=== PATIENT | female | born 1985 | race American Indian/Alaskan Native ===

== ENCOUNTER 2021-03-15 23:56 | Emergency (ER) | payer SELFPAY ==
--- NOTE | 2021-03-16 00:49 | Emergency Department Report ---
ED Psych HPI - General Chief Complaint: Psych Stated Complaint: MH Time Seen by Provider: 03/16/21 00:39 Source: patient Mode of arrival: Ambulatory - History of Present Illness Initial Comments: Patient is a 36-year-old female who presents emergency room with complaints of suicidal ideations and depression. Patient states that her symptoms started 3 to 4 days ago. Patient states her symptoms are worsening. Patient states she then developed the plan tonight. Patient states her plan is to overdose on Klonopin which she has access to. Patient states she called a crisis line and the crisis line brought her to the hospital. Patient denies homicidal ideation. Patient denies hallucinations. Patient states she is been quite depressed. Patient dates she has a history of anxiety, depression, fibromyalgia and chronic pain. Patient states she is currently taking Klonopin and Cymbalta. Patient states she does believe Cymbalta is working. Patient denies recent travel. Patient denies recent international travel. Patient denies exposure to the novel coronavirus. Patient denies sick contacts. Patient denies fever and chills. Patient denies cough. Patient denies diarrhea. Patient denies coming in contact with anybody with symptoms of the novel coronavirus. Complaint: suicidal ideation, feels depressed -: Sudden Associated Psychiatric Symptoms: depression, suicidal ideation, racing thoughts History of same: Yes Quality: constant Improves With: none Worsens With: none Context: significant life stressor Associated Symptoms: denies: confusion, headache, shortness of breath, nausea, vomiting, syncope, insomnia Treatments Prior to Arrival: placed on mental he If Self Harm: admits thoughts of, has plan - Related Data Allergies Allergy/AdvReac Type Severity Reaction Status Date / Time No Known Allergies Allergy Unverified 03/16/21 00:21 ED Review of Systems ROS: Stated complaint: MH Other details as noted in HPI Constitutional: denies: chills, fever Eyes: denies: eye pain, eye discharge, vision change ENT: denies: ear pain, throat pain Respiratory: denies: cough, shortness of breath, wheezing Cardiovascular: denies: chest pain, palpitations Endocrine: no symptoms reported Gastrointestinal: denies: abdominal pain, nausea, diarrhea Genitourinary: denies: urgency, dysuria, discharge Musculoskeletal: denies: back pain, joint swelling, arthralgia Skin: denies: rash, lesions Neurological: denies: headache, weakness, paresthesias Psychiatric: as per HPI, anxiety, depression, suicidal thoughts Hematological/Lymphatic: denies: easy bleeding, easy bruising ED Past Medical Hx - Past Medical History Previous Medical History?: Yes Hx Asthma: Yes Additional medical history: anxiety, depression, fibromyalgia, chronic pain - Surgical History Past Surgical History?: Yes Additional Surgical History: hysterectomy, spinal fusion - Family History Family history: no significant - Social History Smoking Status: Never Smoker Substance Use Type: None ED Physical Exam - General Limitations: No Limitations General appearance: alert, in no apparent distress - Head Head exam: Present: atraumatic, normocephalic - Eye Eye exam: Present: normal appearance - ENT ENT exam: Present: mucous membranes moist - Neck Neck exam: Present: normal inspection - Respiratory Respiratory exam: Present: normal lung sounds bilaterally. Absent: respiratory distress - Cardiovascular Cardiovascular Exam: Present: regular rate, normal rhythm. Absent: systolic murmur, diastolic murmur, rubs, gallop - GI/Abdominal GI/Abdominal exam: Present: soft, normal bowel sounds - Extremities Exam Extremities exam: Present: normal inspection - Back Exam Back exam: Present: normal inspection - Neurological Exam Neurological exam: Present: alert, oriented X3 - Psychiatric Psychiatric exam: Present: depressed, flat affect, suicidal ideation - Skin Skin exam: Present: warm, dry, intact, normal color. Absent: rash ED Course Vital Signs 03/16/21 03/16/21 03/16/21 00:18 01:14 02:00 Temperature 98.7 F Pulse Rate 97 H 85 Respiratory 18 18 Rate Blood Pressure 155/96 Blood Pressure 139/89 [Right] O2 Sat by Pulse 97 96 97 Oximetry 03/16/21 03/16/21 03/16/21 09:28 19:27 20:50 Temperature 98.5 F 98.7 F Pulse Rate 93 H 76 Respiratory 18 18 Rate Blood Pressure Blood Pressure 144/88 140/78 [Right] O2 Sat by Pulse 99 98 99 Oximetry - Reevaluation(s) Reevaluation #1: Patient is medically cleared. Patient will remain in the ER as an ER hold until the patient is cleared by our psychiatry team. Patient's final disposition will come from our psych team. 03/16/21 02:58 ED Medical Decision Making - Lab Data Result diagrams: 03/16/21 00:50 03/16/21 00:50 - Medical Decision Making Patient is a 36-year-old female that presents emergency room with complaints of suicidal ideations. Patient has a plan to overdose on her Klonopin. Patient is currently taking Klonopin and Cymbalta for her psychiatric condition. Patient states her depression has been worsening. Patient states she went to get help prior to actually taking part in her plan. Patient had labs done which were essentially unremarkable. Patient is medically cleared. Patient remained in the ER as an ER hold until the patient is cleared by our psychiatry team. Patient's final disposition will come from our psychiatry team. - Differential Diagnosis Depression, suicidal ideation, Critical care attestation.: If time is entered above; I have spent that time in minutes in the direct care of this critically ill patient, excluding procedure time. ED Disposition Clinical Impression: Suicidal ideation Depression Qualifiers: Depression Type: unspecified Qualified Code(s): F32.A - Depression, unspecified Disposition: [address] [place] [address] HOSPITAL Is pt being admited?: No Does the pt Need Aspirin: No Condition: Stable Referrals: VERNELL VARNER MD [Primary Care Provider] - 2-3 Days Time of Disposition: 02:59
[2021-03-16 01:36] LABS: Blood Urea Nitrogen 10 mg/dL (7-17); Calcium 9.2 mg/dL (8.4-10.2); Hemolysis Index 2
[2021-03-16 01:55] LABS: BUN/Creatinine Ratio 17
[2021-03-16 01:56] LABS: Basophils % (Auto) 0.6 % (0.0-1.8); Eosinophils # (Auto) 0.2 K/mm3 (0.0-0.4); Eosinophils % (Auto) 2.1 % (0.0-4.3); Hematocrit 38.7 % (30.3-42.9); Hemoglobin 12.6 gm/dl (10.1-14.3); Lymphocytes # (Auto) 1.6 K/mm3 (1.2-5.4); Lymphocytes % (Auto) 20.7 % (13.4-35.0); Mean Corpuscular HGB Conc 33 % (30-34); Mean Corpuscular Volume 88 fl (79-97); Monocytes # (Auto) 0.7 K/mm3 (0.0-0.8); Monocytes % (Auto) 9.8 % (0.0-7.3); Platelet Count 503 K/mm3 (140-440); Red Cell Distribution Width 13.5 % (13.2-15.2)
[2021-03-16 04:31] LABS: Bilirubin,Urine NEG (Negative); Blood,Urine NEG (Negative); Color,Urine Yellow (Yellow); Mucus,Urine FEW /HPF; Protein,Urine <15 mg/dL mg/dL (Negative); Urobilinogen,Urine < 2.0 mg/dL (<2.0)
[2021-03-16 04:44] LABS: Amphetamine Screen,Urine PRESUMPTIVE NEGATIVE; Benzodiazepines Screen,Urine PRESUMPTIVE NEGATIVE; Cannabinoid Screen,Urine PRESUMPTIVE NEGATIVE; Cocaine Screen,Urine PRESUMPTIVE NEGATIVE; Methadone Screen,Urine PRESUMPTIVE NEGATIVE; Opiate Screen,Urine PRESUMPTIVE NEGATIVE
--- NOTE | 2021-03-16 09:02 | Consultation ---
History of Present Illness - Reason for Consult Consult date: 03/16/21 Reason for consult: SI, depression - History of Present Psychiatric Illness Per ER Chart: Patient is a 36-year-old female who presents emergency room with complaints of suicidal ideations and depression. Patient states that her symptoms started 3 to 4 days ago. Patient states her symptoms are worsening. Patient states she then developed the plan tonight. Patient states her plan is to overdose on Klonopin which she has access to. Patient states she called a crisis line and the crisis line brought her to the hospital. Patient denies homicidal ideation. Patient denies hallucinations. Patient states she is been quite depressed. Patient dates she has a history of anxiety, depression, fibromyalgia and chronic pain. Patient states she is currently taking Klonopin and Cymbalta. Patient states she does believe Cymbalta is working. Janet Travis is a 36y/o female who presented to the ER for depression, SI with plan to OD. During my evaluation, the patient was calm, cooperative and polite. She says "I wasn't feeling very safe so I came to the ER." The patient says she has suicidal thoughts that come and go, have been more severe. She has a plan to OD on her anxiety meds. The patient then says "but right now I acutally feel better than what I did last night." She says "I think maybe if I would have had an increase on my meds it would have helped but right now I don't have insurance." The patient says she has past attempts of SI twice in the past awhile back. She denies hallucinations of any kind. She also denies alcohol, nicotine or illicit drug use. PAST PSYCHIATRIC HISTORY: Diagnoses: depression, anxiety Suicide attempts or Self-harm behavior: Twice Prior psychiatric hospitalizations: Denies Substance Abuse history: Denies Previous psychiatric medications tried: Cymbalta, klonopin Outpatient treatment: Yes PAST MEDICAL HISTORY: None reported or document Family Psychiatric History: None reported or documented SOCIAL HISTORY Marital Status: Single Living Arrangements: Roommate Employment Status: Employed Access to guns/weapons: Denies Education: History of Abuse: Denies Legal History: Denies REVIEW OF SYSTEMS Constitutional: Negative for weight loss ENT: Negative for stridor Respiratory: Negative for cough or hemoptysis All other systems reviewed and are negative MENTAL STATUS EXAMINATION General Appearance and Behavior: Age appropriate, good hygiene, wearing appropriate clothes. Cooperation: cooperative Psychomotor Behavior: Psychomotor normal Mood: Depressed Affect and affective range: congruent with stated mood Thought Process: goal directed Thought Content: None Speech: Normal volume, Regular rate and rhythm, Suicidal Ideation: Yes Homicidal Ideation: Denies Hallucinations: Denies Delusions: None elicited Impulse Control: Limited Insight and Judgment: Limited Memory: limited Attention: Distractible Orientation: alert and oriented Assessment and Plan (1) Major Depressive Disorder (2) Generalized Anxiety Disorder Treatment Plan 1013 Increase home Cymbalta 40mg po daily Klonopin 0.25mg po BID PRN anxiety Vistaril 50mg po BID Trazodone 50mg po qhs Sitter: Per primary Medical: per primary Disposition: Recommend acute psychiatric inpatient treatment Will follow. Thanks. Case staffed with Dr. Byrd Medications and Allergies Allergies Allergy/AdvReac Type Severity Reaction Status Date / Time No Known Allergies Allergy Unverified 03/16/21 00:21 Mental Status Exam - Vital signs Last Vital Signs Temp 98.7 F 03/16/21 01:14 Pulse 85 03/16/21 01:14 Resp 18 03/16/21 01:14 BP 139/89 03/16/21 01:14 Pulse Ox 97 03/16/21 02:00 Results Result Diagrams: 03/16/21 00:50 03/16/21 00:50 Abnormal lab results 03/16/21 03/16/21 03/16/21 Range/Units 00:50 00:50 00:50 Plt Count 503 H (140-440) K/mm3 [place] % (Auto) 9.8 H (0.0-7.3) % Salicylates < 0.3 L (2.8-20.0) mg/dL Acetaminophen 5.0 L (10.0-30.0) ug/mL All other labs normal.
[2021-03-16] MEDS ORDERED: clonazePAM 0.5 MG TAB PO PRN (10:00)
[2021-03-16] MEDS ORDERED: DULoxetine 20 MG CAP PO SCH (10:00)
--- NOTE | 2021-03-16 16:24 | Event Note ---
Date: 03/16/21 S: Patient has no complaints. No overnight events per nursing. O: Patient calm and cooperative. A: Major depression P: Continue 1013, currently awaiting psychiatric placement
[2021-03-16 20:51] VITALS: BP 140/78
[2021-03-16] MEDS ORDERED: traZODone 50 MG TAB PO SCH (22:00)
== END 2021-03-16 20:52 ==
LOC: ED 23:56 → EEVIPCON 23:56 → ED 03-16 20:52
DX: R45.851 Suicidal ideations (principal); F32.A Depression, unspecified; M79.7 Fibromyalgia; G89.29 Other chronic pain; Z90.710 Acquired absence of both cervix and uterus; Z98.890 Other specified postprocedural states; Z20.822 Contact with and (suspected) exposure to COVID-19
CPT/HCPCS: 36415; 80048; 80307; 81001; 85025; 99285; Q0177; U0003; 80320; G0480